=== PATIENT | male | born 1935 | race Caucasian/White ===

== ENCOUNTER 2025-05-04 10:41 | Observation (INO) | payer BC, MEDICARE ==
[~2025-05-04 10:41] MED LIST: GALANTAMINE HBR 4 MG PO SCH
[2025-05-04] MEDS ORDERED: ISOVUE-370 76% 100 ML VIAL As Ordered ONE (11:08)
[2025-05-04 11:29] LABS: BASO # 0.1 10^3/uL (0.0-0.2); BASO % 0.3 % (0.0-1.0); EOS # 0.0 10^3/uL (0.0-0.5); EOS % 0.1 % (0.0-3.0); LYMPH # 0.7 10^3/uL (1.5-5.0); LYMPH % 4.1 % (24.0-44.0); MONO % 15.7 % (2.0-8.0); NEUTROPHILS # 13.8 10^3/uL (1.5-8.5); NEUTROPHILS % 79.2 % (36.0-66.0); PLATELET COUNT, AUTOMATED 120 10^3/uL (150-450)
[2025-05-04 11:33] LABS: MONO # 2.7 10^3/uL (0.0-0.8)
[2025-05-04 11:45] LABS: INR 1.05
[2025-05-04 12:38] LABS: VENOUS BASE EXCESS -3.4 (-2.0-2.0); VENOUS HCO3 23.3 MMOL/L (23.0-27.0); VENOUS O2 SATURATION 42.9 % (60.0-80.0); VENOUS PARTIAL PRESSURE CO2 48.7 mmHg (38.0-50.0); VENOUS PARTIAL PRESSURE O2 24.8 mmHg (30.0-50.0); VENOUS PH 7.297 UNITS (7.330-7.430); VENOUS STANDARD HCO3 20.5 MMOL/L; VENOUS TOTAL CO2 24.8 MMOL/L (24.0-28.0)
[2025-05-04] MEDS ORDERED: MEMA10TA PO (12:44)
[2025-05-04] MEDS ORDERED: FOLTTAB9 PO (12:44)
[2025-05-04] MEDS ORDERED: NORV5TAB PO (12:44)
[2025-05-04] MEDS ORDERED: ATOR1TAB21 PO (12:44)
[2025-05-04] MEDS ORDERED: HYDR-643 PO (12:44)
[2025-05-04] MEDS ORDERED: SERT25TA85 PO (12:44)
[2025-05-04] MEDS ORDERED: QC F0.52 PO (12:44)
[2025-05-04] MEDS ORDERED: PANT20TA6 PO (12:44)
[2025-05-04] MEDS ORDERED: LISI5TAB11 PO (12:44)
[2025-05-04] MEDS ORDERED: ASPI81CH33 PO (12:44)
[2025-05-04] MEDS ORDERED: [UNRECOGNIZED DRUG - CODE] PO (12:44)
[2025-05-04] MEDS ORDERED: VITA200012 PO (12:44)
[2025-05-04 12:46] LABS: ALT/SGPT 31.0 U/L (7.0-40); AST/SGOT 26.0 U/L (<34); CALCIUM LEVEL 9.1 MG/DL (8.3-10.6); CARBON DIOXIDE LEVEL 29.0 MMOL/L (20-31); CREATININE FOR GFR 1.48 MG/DL (0.70-1.30); GLOMERULAR FILTRATION RATE 45.5 (>35)
[2025-05-04 12:52] LABS: OSMOLALITY SERUM 306.0 MOSM/KG (280-301)
[2025-05-04 13:04] LABS: KETONE, URINE AUTO RFX NEGATIVE (NEGATIVE); LEUKOCYTE ESTERASE UR AUTO RFX NEGATIVE (NEGATIVE); MUCUS, URINE RFX SMALL (NEGATIVE); NITRITE, URINE AUTO RFX NEGATIVE (NEGATIVE); RBC, URINE AUTO RFX 2 /HPF (0-3); SQUAM EPITHELIAL CELL UR AURFX 0 /HPF (0-6); WBC, URINE AUTO RFX 0 /HPF (0-3)
[2025-05-04 13:26] LABS: CHLORIDE LEVEL 106.0 MMOL/L (98-107); POTASSIUM SERUM 3.9 MMOL/L (3.5-5.1); SODIUM LEVEL 144.0 MMOL/L (136-145)
[2025-05-04] MEDS ORDERED: ASPI-164 PO (15:19)
[2025-05-04] MEDS ORDERED: AMLO2.5T3 PO (15:19)
[2025-05-04] MEDS ORDERED: VITA200031 PO (15:22)
[2025-05-04] MEDS ORDERED: GALA4TAB11 PO (15:23)
[2025-05-04] MEDS ORDERED: LISI10TA22 PO (15:25)
[2025-05-04] MEDS ORDERED: MEMA28CA12 PO (15:26)
[2025-05-04] MEDS ORDERED: PANT40TA29 PO (15:27)
[2025-05-04] MEDS ORDERED: HOME MED LIST COMPLETE! XX SCH (15:30)
[2025-05-04] MEDS: NS (Normal Saline) 0.9% 1,000 ML IV ONE (16:10)
[2025-05-04 18:26] LABS: PHOSPHORUS LEVEL 2.3 MG/DL (2.4-5.1)
[2025-05-04 18:27] LABS: VITAMIN B12 LEVEL 762.0 PG/ML (211-911)
[2025-05-04 18:40] VITALS: BP 168/85; TEMP 97.4; O2SAT 93
[2025-05-04 18:41] VITALS: BP 168/85; TEMP 97.4; O2SAT 93
[2025-05-04] MEDS: NS (Normal Saline) 0.9% 1,000 ML IV SCH (19:49)
[2025-05-04 20:00] VITALS: BP 168/85; TEMP 97.4; O2SAT 93
[2025-05-04] MEDS: RAMELTEON 8 MG TAB PO SCH (20:08)
[2025-05-04] MEDS: HEPARIN SOD 5000 UNITS/ML 1 ML VIAL/SYRINGE SQ SCH (20:08)
[2025-05-04] MEDS: ATORVASTATIN 20 MG TAB PO SCH (20:08)
[2025-05-04 22:00] VITALS: O2SAT 93
[2025-05-04 23:09] VITALS: BP 150/72; TEMP 97.8; O2SAT 95
[2025-05-04] MEDS: HALOPERIDOL LACTATE 5 MG/ML VIAL IM ONE (23:42)
[2025-05-05] VITALS: BP 150/72; TEMP 97.8; O2SAT 93; O2SAT 95
[2025-05-05 03:00] VITALS: BP 124/76; TEMP 97.6; O2SAT 99
[2025-05-05 04:00] VITALS: BP 124/76; TEMP 97.6; O2SAT 93; O2SAT 99
[2025-05-05] MEDS: HALOPERIDOL LACTATE 5 MG/ML VIAL IM ONE (04:52)
[2025-05-05 05:43] LABS: BASO # 0.0 10^3/uL (0.0-0.2); BASO % 0.2 % (0.0-1.0); EOS # 0.0 10^3/uL (0.0-0.5); EOS % 0.1 % (0.0-3.0); LYMPH # 0.7 10^3/uL (1.5-5.0); LYMPH % 4.2 % (24.0-44.0); MONO # 2.2 10^3/uL (0.0-0.8); MONO % 13.2 % (2.0-8.0); NEUTROPHILS # 13.5 10^3/uL (1.5-8.5); NEUTROPHILS % 81.7 % (36.0-66.0); PLATELET COUNT, AUTOMATED 137 10^3/uL (150-450)
[2025-05-05 06:07] LABS: CALCIUM LEVEL 8.3 MG/DL (8.3-10.6); CARBON DIOXIDE LEVEL 26.0 MMOL/L (20-31); CHLORIDE LEVEL 107.0 MMOL/L (98-107); CHOLESTEROL LEVEL 127.0 MG/DL (<200); CHOLESTEROL RISK RATIO 2.1 (<5); CREATININE FOR GFR 1.29 MG/DL (0.70-1.30); GLOMERULAR FILTRATION RATE 53.7 (>35); LDL CHOLESTEROL 53.4 MG/DL (<100); MAGNESIUM LEVEL 1.6 MG/DL (1.8-2.4); NON-HDL-C 66.6 MG/DL; POTASSIUM SERUM 3.9 MMOL/L (3.5-5.1); SODIUM LEVEL 143.0 MMOL/L (136-145); TRIGLYCERIDES LEVEL 66.0 MG/DL (<150)
[2025-05-05 06:52] LABS: ESTIMATED AVERAGE GLUCOSE 111.0 MG/DL (60-110)
[2025-05-05 08:14] VITALS: BP 150/67; TEMP 98.5; O2SAT 100
[2025-05-05] MEDS ORDERED: MEMANTINE 28 MG PO SCH (09:00)
[2025-05-05] MEDS ORDERED: MEMANTINE 5 MG TABLET PO SCH (09:00)
[2025-05-05] MEDS: MAG SULF 1GM/100ML (MAG RUN) 1 GM in IV 1 EA IV SCH (09:01)
[2025-05-05] MEDS: ASPIRIN 81 MG CHEWABLE TABLET PO SCH (09:02)
[2025-05-05] MEDS: PANTOPRAZOLE 40MG TAB PO SCH (09:02)
[2025-05-05] MEDS: SERTRALINE HCL 25 MG TABLET PO SCH (09:02)
[2025-05-05] MEDS ORDERED: AUGM12TA11 PO (11:13)
[2025-05-05] MEDS ORDERED: PROBCAP14 PO (11:13)
[2025-05-05] MEDS ORDERED: ATOR1TAB21 PO (11:13)
[2025-05-05 12:00] VITALS: BP 160/80; TEMP 98.5; O2SAT 100
[2025-05-09 17:12] LABS: 25-HYDROXY VITAMIN D2 < 8 pg/mL; 25-HYDROXY VITAMIN D3 33 pg/mL; VITAMIN D 1 25 DIHYDROXY 33 pg/mL (18-72)
[2025-05-13 17:28] LABS: VITAMIN B1 LEVEL WHOLE BLOOD 131 nmol/L (78-185)
== END 2025-05-05 15:52 | disposition home or self-care (01) ==
LOC: M ED 10:41 → M ED INP 10:42 → UNDOADMOB 16:05 → INTOOBSV 16:05 → M ED INP 16:05 → M PCU 18:33 → UNDODISIN 05-05 15:52
PROVIDERS: ADMIT Student in an Organized Health Care Education/Training Program; ATTEND Student in an Organized Health Care Education/Training Program
DX: G45.9 Transient cerebral ischemic attack, unspecified (principal); N17.9 Acute kidney failure, unspecified; R47.01 Aphasia; R26.89 Other abnormalities of gait and mobility; E83.42 Hypomagnesemia; D72.829 Elevated white blood cell count, unspecified; Z95.0 Presence of cardiac pacemaker; E78.5 Hyperlipidemia, unspecified; F03.90 Unspecified dementia, unspecified severity, without behavioral disturbance, psychotic disturbance, mood disturbance, and anxiety; R32 Unspecified urinary incontinence; F41.9 Anxiety disorder, unspecified; F32.A Depression, unspecified; Z79.82 Long term (current) use of aspirin; Z79.899 Other long term (current) drug therapy
CPT/HCPCS: 36415; 70450; 70496; 70498; 71045; 80047; 80048; 80061; 80076; 81001; 82040; 82140; 82607; 82652; 82746; 82803; 83036; 83605; 83735; 83930; 84100; 84425; 84443; 85025; 85610; 85730; 87040; 87486; 87581; 87633; 87798; 93005; 93041; 94760; 96361; 96372; 96374; 97161; 99285; G0378; J1630; J3475; Q9967